=== PATIENT | male | born 1940 | race Caucasian/White ===

== ENCOUNTER 2016-05-27 20:40 | Emergency (ER) | payer BC, MEDICARE, OTHER ==
[~2016-05-27] VITALS: Ht 172.7 cm; Wt 73.0 kg
[2016-05-27 20:41] VITALS: BP 171/85; PULSE 84; RESP 14; TEMP 97.4; O2SAT 99
--- NOTE | 2016-05-27 21:07 | PD ---
HPI Chief Complaint: Laceration/Skin Injury Time Seen by Provider: 21:06 Travel History International Travel<30 days: No Contact w/Intl Traveler<30days: No Traveled to known affect area: No History of Present Illness HPI Patient comes in complaining of laceration to his left index finger that occurred shortly prior to arrival. 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 He states he ran under cold water and wrapped it prior to coming to the emergency department. Patient is uncertain of last tetanus shot. Patient reports pain around the site of the laceration without radiation. Pain is worse with movement of his left finger. Denies any numbness or tingling or being on any blood thinners. [facility] Past Medical History Medical History: Denies Significant Hx Social History Alcohol Use: No Tobacco Use: No Substance Use: No Allergies-Medications (Allergen,Severity, Reaction): Coded Allergies: No Known Allergies (Unverified , 05/27/16) Review of Systems Except as stated in HPI: all other systems reviewed are Neg Physical Exam Narrative GENERAL: Well-developed, well nourished, in no acute distress, and non-ill appearing. SKIN: Warm and dry. Laceration dorsal aspect left index finger. Neurovascular intact distally. Full range of motion distally. HEAD: Atraumatic. Normocephalic. EYES: Pupils equal and round. EOMI. No scleral icterus. No injection or drainage. ENT: No nasal bleeding or discharge. Mucous membranes pink and moist. NECK: Trachea midline. Supple. No nuclear rigidity. CARDIOVASCULAR: Capillary refill less than 2 seconds. RESPIRATORY: No accessory muscle use. No respiratory distress. MUSCULOSKELETAL: No obvious deformities. No clubbing. No cyanosis. No edema. Full range of motion. NEUROLOGICAL: Awake and alert. No obvious cranial nerve deficits. Motor grossly within normal limits. Normal speech. PSYCHIATRIC: Appropriate mood and affect; insight and judgment normal. Data Data Last Documented VS Vital Signs Date Time Temp Pulse Resp B/P Pulse Ox O2 Delivery O2 Flow Rate FiO2 05/27/16 20:41 97.4 84 14 171/85 99 Room Air Orders Tetanus/Diphtheria Tox Adult (Tetanus/Di (05/27/16 21:15) Bupivacaine Pf 0.5% Inj (Marcaine Pf 0.5 (05/27/16 21:15) Lidocaine 1% Inj (50 Ml) (Xylocaine 1% I (05/27/16 21:15) [facility] Medical Decision Making Medical Screen Exam Complete: Yes Emergency Medical Condition: Yes Differential Diagnosis Laceration, abrasion, contusion, skin tear, other Narrative Course The patient suffered laceration to the finger. There was no evidence to suggest foreign bodies by history and exam. Visual and tactile exams were unremarkable. There was no evidence of neurovascular injury. The patient had a normal distal vascular exam, and had full normal motor and sensory exams. There was also no evidence or tendon injury, with normal distal full range of motions, flexion, extension, abduction, adduction and opponens. There was no evidence of local joint space involvement at this time. The patient was irrigated with copious sterile normal saline and primary repair was performed. Please see procedure note. The patient was given signs and symptom warnings for infection, such as increasing pain, redness, swelling, associated heat, pus or fever. The patient was warned of possible unseen foreign body and instructed to return immediately if signs or symptoms develop. The patient was given instructions for timely follow up. The patient agreed with plan of care. Patient in no obvious distress upon re-evaluation. Any questions/concerns in reference to patient diagnosis/condition discussed and clarified prior to patient's discharge. Reinforced sheer importance of close follow up with patient 's primary physician or primary care clinic. Instructed patient to return to ED immediately, if symptoms return/worsen. Pt showed understanding of above instructions. Further instructions and recommendations were detailed in discharge paperwork. Pt ambulated without difficulty out of ED at discharge. Procedures Procedure Narrative LACERATION REPAIR LOCATION: Left index finger LENGTH: 2 cm NUMBER OF STITCHES/DEANDRE: 4 simple interrupted REPAIR: Verbal consent was obtained. The area of the laceration was cleaned and prepped. Digital block performed using a mixture of Marcaine without epi and lidocaine without epi. The wound was copiously irrigated and explored without evidence of foreign body, bony involvement, ligament injury, tendon injury, or neurovascular injury. The wound was closed using 5-0 Vicryl. This was a single layer repair. A sterile dressing was applied by nurse. The patient was advised to keep the affected area as clean and dry as possible using soap and water. There were no complications. Patient tolerated the procedure well. Diagnosis Primary Impression: Finger laceration Qualified Code: S61.219A - Finger laceration, initial encounter Referrals: Pippa Acevedo MD Patient Instructions: Care For Your Absorbable Stitches (ED), Finger Laceration (ED), General Instructions Additional Instructions: Follow-up with your primary care physician and/or hand surgeon next week for reevaluation. Keep wound dry and clean as possible using soap and water. Return to the emergency department if symptoms get worse. Disposition: 01 DISCHARGE HOME Condition: Stable Dada Denise May 27, 2016 21:07
[2016-05-27] MEDS ORDERED: BUPIVACAINE HCL PF 0.5% 10 ML VIAL INFIL ONE (21:15)
[2016-05-27] MEDS ORDERED: LIDOCAINE HCL 1% 50 ML VIAL INFIL ONE (21:15)
[2016-05-27] MEDS ORDERED: TETANUS/DIPHTHERIA TOXOID ADULT 0.5 ML VIAL IM ONE (21:15)
== END 2016-05-27 22:06 | disposition home or self-care (01) ==
LOC: NEPB 20:40
DX: S61.211A Laceration without foreign body of left index finger without damage to nail, initial encounter (principal); Z23 Encounter for immunization; W27.8XXA Contact with other nonpowered hand tool, initial encounter
CPT/HCPCS: 12001; 90471; 90714